=== PATIENT | male | born 1945 | race Asian ===

== ENCOUNTER 2019-09-16 23:23 | Emergency (ER) | payer OTHER ==
[~2019-09-16] VITALS: Ht 175.3 cm; Wt 82.0 kg
[~2019-09-16 23:23] MED LIST: ALLO100T PO; ATEN100T PO; METF-416 PO; NIFE60TA64 PO; POTA10TA15 PO; TAMS0.4C31 PO
[2019-09-17] MEDS ORDERED: TETANUS, DIPHTHERIA, PERTUSSIS VAC/PF 0.5ML (>7YR OLD) IM ONE (00:30)
[2019-09-17] MEDS ORDERED: ACETAMINOPHEN 325MG TABLET PO ONE (00:30)
[2019-09-17 02:58] VITALS: BP 120/82
== END 2019-09-17 02:59 | disposition home or self-care (01) ==
LOC: ER 23:23
DX: S01.01XA Laceration without foreign body of scalp, initial encounter (principal); E11.9 Type 2 diabetes mellitus without complications; I11.9 Hypertensive heart disease without heart failure; W01.198A Fall on same level from slipping, tripping and stumbling with subsequent striking against other object, initial encounter; Y93.89 Activity, other specified; Y92.9 Unspecified place or not applicable
CPT/HCPCS: 12001; 90471; 90715; 99284